=== PATIENT | male | born 1990 | race Caucasian/White ===

== ENCOUNTER 2019-01-22 13:06 | Emergency (ER) | payer OTHER ==
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
[2019-01-22 14:11] VITALS: BP 137/94
== END 2019-01-22 14:07 | disposition home or self-care (01) ==
LOC: ED 13:06
DX: L03.115 Cellulitis of right lower limb (principal); R20.0 Anesthesia of skin
CPT/HCPCS: 99281